=== PATIENT | male | born 1950 | race Caucasian/White ===

== ENCOUNTER 2019-04-05 07:21 | Outpatient (CLI) | payer OTHER, MEDICARE, SELFPAY ==
--- NOTE | ~2019-04-05 | NM_ITS ---
EXAMINATION: NM bone scan whole body DATE: 04/05/2019 11:25 INDICATION: Prostate cancer TECHNIQUE: 23.4 mCi Tc-99m HDP was administered intravenously. Delayed whole-body scintigrams were o btained. COMPARISON: CT abdomen and pelvis dated 04/05/2019 FINDINGS: Small focus of mild increased uptake at the lateral side of the left posterior 10th rib with subtle s mall sclerotic lesion at this location on the CT of the abdomen and pelvis. More typical pattern of l ikely degenerative joint centered uptake at the medial compartment of the left knee, the bilateral mi d feet, right greater than radial aspect of the bilateral carpi and at the right third metacarpophala ngeal joint. There is focal expansion of the mid diaphysis of the right femur with only minimally inc reased uptake suggesting an old healed fracture. Mild lumbar dextroscoliosis. IMPRESSION: 1. Single small focus of mild increased uptake at the left posterior 10th rib for which differential would include metastatic disease although no other suspicious bone lesions are identified to more spe cifically elevated suspicion and the linear pattern of sclerosis is also somewhat atypical. Different ial would include old fracture, bone infarct or benign neoplasms images fibrous dysplasia or enchondr sven. Reviewed, dictated and finalized at location A. S AND CATERING COORDINATOR IMPRESSION: 1. Single small focus of mild increased uptake at the left posterior 10th rib f or which differential would include metastatic disease although no other suspic ious bone lesions are identified to more specifically elevated suspicion and th e linear pattern of sclerosis is also somewhat atypical. Differential would inc lude old fracture, bone infarct or benign neoplasms images fibrous dysplasia or enchondroma.
--- NOTE | ~2019-04-05 | XR_ITS ---
EXAMINATION: XR chest 2V DATE: 04/05/2019 07:54 INDICATION: Prostate cancer. TECHNIQUE: Frontal and lateral views of the chest were obtained. COMPARISON: CT abdomen and pelvis 04/05/2019 FINDINGS: There is mild atelectasis in the lower lung zones. No pleural effusion or pneumothorax. The heart size is normal. IMPRESSION: 1. Mild atelectasis in the lower lung zones. Reviewed, dictated and finalized at location A. TRONIC TEST TECHNICIAN
--- NOTE | ~2019-04-05 | CT_ITS ---
EXAMINATION: CT abdomen pelvis w con DATE: 04/05/2019 08:19 INDICATION: Prostate cancer. TECHNIQUE: Computed tomography (CT) of the abdomen and pelvis was performed with 100 mL Omnipaque 350 intravenous contrast. Automated exposure control and iterative reconstruction technique were employe d. The dose-length product was 514.61 mGy-cm. COMPARISON: None. FINDINGS: The visualized portions of the lung bases demonstrate mild atelectasis. No pleural effusion . The heart size is normal. No pericardial effusion. There is mild bilateral gynecomastia. The liver, gallbladder, spleen, pancreas, and right adrenal gland are normal. There is a 10 mm mass in left adr enal gland measuring soft tissue attenuation. There is cortical thinning of the kidneys. There is a 5 mm cyst in left kidney. The prostate is moderately enlarged. There is diverticulosis of the colon wi thout evidence of diverticulitis. There are no dilated loops of bowel. The appendix is normal. There is a small left inguinal hernia containing fat. There are no pathologically enlarged lymph nodes. The re is no free intraperitoneal fluid. There is moderate lumbar spondylosis. Lumbar dextroscoliosis is noted. IMPRESSION: 1. No specific evidence of metastatic disease. 2. 10 mm left adrenal mass. 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 Reviewed, dictated and finalized at location A. RT LOAD EXPEDITER
[2019-04-05 08:11] LABS: Blood Urea Nitrogen 21 mg/dL (8-26); Estimated Glomerular Filt Rate 60
== END 2019-04-05 07:22 | disposition home or self-care (01) ==
LOC: ANHIMG 07:28
PROVIDERS: PCP Internal Medicine; Visit Provider Urology
DX: C61 Malignant neoplasm of prostate (principal); R93.7 Abnormal findings on diagnostic imaging of other parts of musculoskeletal system; E27.9 Disorder of adrenal gland, unspecified; J98.11 Atelectasis
CPT/HCPCS: 71046; 74177; 78306; A9561; Q9967

== ENCOUNTER 2019-05-02 09:39 | Outpatient (CLI) | payer OTHER, MEDICARE, SELFPAY ==
--- NOTE | 2019-05-02 10:21 | ECG_ITS ---
Measurements Intervals [place] Rate: 57 P: 33 WI: 155 QRS: -9 QRSD: 101 T: 31 QT: 401 QTc: 393 Interpretive Statements SINUS BRADYCARDIA BASELINE ARTIFACT- I, II, III, AVR, AVL, AVF BORDERLINE ECG Electronically Signed On 05-02-2019 10:41:46 CDT by Addi Cannon D.O.
[2019-05-02 11:24] LABS: INR 0.9
[2019-05-02 11:27] LABS: Alanine Aminotransferase 30 U/L (4-50); Albumin Level 4.7 g/dL (3.5-5.1); Alkaline Phosphatase 49 U/L (38-126); Aspartate Amino Transferase 32 U/L (17-59); Bilirubin,Total 0.3 mg/dL (0.2-1.3); Blood Urea Nitrogen 16 mg/dL (9-20); Calcium 9.4 mg/dL (8.4-10.2); Carbon Dioxide 24 mmol/L (22-30); Chloride 106 mmol/L (98-107); Estimated Glomerular Filt Rate 60; Glucose 89 mg/dL (75-110); Potassium 4.2 mmol/L (3.4-5.0); Sodium 138 mmol/L (137-145)
[2019-05-02 11:32] LABS: Basophils Percent Auto 0.5 % (0.2-1.2); Eosinophils Absolute Auto 0.1 K/mm3 (0-0.3); Eosinophils Percent Auto 1.3 % (0-4.4); Hematocrit 44.2 % (42.0-52.0); Hemoglobin 14.5 g/dL (14.0-18.0); Immature Granulocyte Absolute 0.01 K/mm3 (0.00-0.031); Immature Granulocyte Percent A 0.2 % (0-0.5); Lymphocytes Absolute Auto 1.57 K/mm3 (0.9-3.2); Lymphocytes Percent Auto 26.3 % (18.3-44.2); Mean Corpuscular HGB Conc 32.8 g/dl (32-36); Mean Corpuscular Hemoglobin 32.2 pg (26-34); Mean Platelet Volume 10.4 fl (7.4-10.4); Monocytes Absolute Auto 0.4 K/mm3 (0.1-0.6); Monocytes Percent Auto 5.9 % (2.6-8.5); Neutrophils Absolute Auto 3.9 K/mm3 (1.3-6.7); Neutrophils Percent Auto 65.8 % (45.5-73.1); Platelet Count Result 255 k/mm3 (150-375); Red Blood Count 4.51 M/mm3 (4.6-6.20); Red Cell Distribution Width 13.2 % (11.5-14.5)
[2019-05-02 11:38] LABS: Add Urine Microscopic? NO; Appearance Urine Clear (Clear); Bilirubin Urine Negative (Negative); Blood Urine Negative (Negative); Color Urine Colorless (Yellow); Glucose Urine UA Negative (Negative); Ketones Urine Negative (Negative); Leukocyte Esterase Ur Negative LEU/UL (Negative); Nitrate Urine Negative (Negative); Protein Urine Negative (Negative); Specific Grav Ur 1.006 (1.001-1.035); Urobilinogen Urine Negative mg/dL (<2.0)
== END 2019-05-02 09:40 | disposition home or self-care (01) ==
PROVIDERS: PCP Internal Medicine; Visit Provider Urology
DX: Z01.818 Encounter for other preprocedural examination (principal); C61 Malignant neoplasm of prostate
CPT/HCPCS: 36415; 80053; 81003; 85025; 85610; 85730; 86850; 86900; 86901; 93005

== ENCOUNTER 2019-05-12 01:48 | Day surgery (SDC) | payer OTHER, MEDICARE, SELFPAY ==
[2019-05-02 10:00] VITALS: BP 170/92; PULSE 64; RESP 20; TEMP 37; O2SAT 98; BMI 27.4
--- NOTE | 2019-05-06 11:16 | PM.IMHP ---
H&P: HPI History of Present Illness Chief complaint: Prostate Cancer Narrative: Delio Nichols is a 68 year old male who is well known to our practice with a long history of an elevated PSA. He 1st underwent a prostate biopsy in February 2012 when his PSA was 4.6. For several years his PSA remained stable until recently shot up to 13.3. Elier Myers transrectal ultrasound and biopsy of the prostate revealed a 57.7 cc gland with 5 of 12 cores showing Hattie adenocarcinoma 4+ 4 equals 8.Alternative treatment options (including active surveillance, radiation therapy in its various forms and androgen ablation) have been discussed. We've also discussed complications of this procedure including, but not limited to, failure to control his cancer, adverser cardiopulmonary events, rectal injury, need to convert to an open procedure, urinary incontinence and erectile dysfunction. Review of Systems Constitutional: Constitutional: Denies chills, Denies fatigue, Denies fever(s) and Denies headache(s) Eyes: Eyes: Denies blurry vision ENT: Denies vertigo, Denies dizziness, Denies headache(s) and Denies sore throat Cardiovascular: Cardiovascular: Denies chest pain, Denies syncope, Denies lightheadedness, Denies palpitations, Denies dyspnea and Denies dyspnea on exertion Respiratory: Respiratory: Denies hemoptysis, Denies dyspnea and Denies dyspnea on exertion Gastrointestinal: Gastrointestinal: Denies melena, Denies bloating, Denies hematochezia, Denies change in bowel habits, Denies change in stool character, Denies constipation, Denies diarrhea and Denies vomiting Genitourinary: Genitourinary: Denies hematuria, Denies dysuria, Denies testicular pain, Denies urinary frequency, Denies urinary hesitancy and Denies urinary urgency Integumentary/Breasts: Skin/Breast: Denies pruritus, Denies lesions and Denies rash Neurologic: Denies confusion, Denies vertigo, Denies dizziness, Denies syncope and Denies headache(s) Psychiatric: Psychiatric: Denies anxiety, Denies change in appetite and Denies confusion Endocrine: Endocrine: Denies fatigue and Denies palpitations PMF Family History Family History Father Carcinoma of colon Social History Social History Smoking status: Former smoker Second hand tobacco smoke exposure: No Smoking end date: 02/23/94 Alcohol intake: never Meds Home Medications and Allergies Home Medications Medication Instructions Recorded Confirmed Type atorvastatin 20 mg PO DAILY 05/02/19 05/02/19 History finasteride 5 mg PO DAILY 05/02/19 05/02/19 History metoprolol tartrate 50 mg PO DAILY 05/02/19 05/02/19 History multivitamin 1 tablet PO DAILY 05/02/19 05/02/19 History Allergies Allergy/AdvReac Type Severity Reaction Status Date / Time Penicillins Allergy Unknown Rash Verified 05/02/19 09:53 Exam Const: General: healthy appearing, comfortable, no acute distress and well developed; No confusion Nutritional Appearance: well nourished Orientation/consciousness: patient oriented x3 and No confusion HENMT: Head: normocephalic and atraumatic Ears: external ears normal Face and sinus: normal facial exam Mouth: Yes lip normal Teeth and gingiva: dentition normal Eyes: General: appearance normal, both eyes and all related structures Alignment and Position: alignment normal Eyelids: eyelids normal Cornea: corneas normal Pupils: Equal, round and reactive pupils present EOM: EOMs intact bilaterally Neck: Neck: normal visual inspection, full ROM and no JVD Chest: Chest palpation & inspection: normal inspection of the chest Resp: Effort & Inspection: normal respiratory effort and no use of accessory muscles Auscultation: clear to auscultation bilaterally Cardio: Jugular venous distension: no JVD Rate: regular rate Rhythm: regular rhythm GI: Inspection: normal to inspection GI Palp:
[2019-05-12] VITALS (12 sets, daily range): BP systolic 105–156; BP diastolic 51–96; PULSE 52–91; RESP 16–18; TEMP 36.1–37.2; O2SAT 94–100
[2019-05-12] MEDS: LACTATED RINGERS 1,000 ML 30 ML IV CONT ×2 (06:35→10:52)
--- NOTE | 2019-05-12 06:35 | WPDANESEPPF ---
Anes - Initial Pre Proc Eval Procedure: Operation Date: 05/12/19 07:30 Proposed Procedures p Robotic Prostatectomy, Bilateral Pelvic Lymph Node Dissection - Bill Underwood MD Date/Time: 05/12/19 06:35 Surgeon: Bill Underwood MD Pre Op Diagnosis: Prostate Cancer Patient Data Age: 68 Gender: M Height: 5 ft 9.5 in Weight: 81.6 kg Last Vital Signs Temp 36.6 C 05/12/19 06:01 Pulse 86 05/12/19 06:01 Resp 18 05/12/19 06:01 BP 148/91 H 05/12/19 06:01 Pulse Ox 98 05/12/19 06:01 Allergies Allergy/AdvReac Type Severity Reaction Status Date / Time Penicillins Allergy Unknown Rash Verified 05/12/19 06:17 Home Medications Medication Instructions Recorded Confirmed Type atorvastatin 20 mg PO DAILY 05/02/19 05/12/19 History finasteride 5 mg PO DAILY 05/02/19 05/12/19 History metoprolol tartrate 50 mg PO DAILY 05/02/19 05/12/19 History multivitamin 1 tablet PO DAILY 05/02/19 05/12/19 History Patient hx anesthesia problems: none Family hx anesthesia problems: none PMF Family History Family History Father Carcinoma of colon Social History Social History Smoking status: Former smoker Second hand tobacco smoke exposure: No Smoking end date: 02/23/94 Alcohol intake: never Anes - Eval Final PreProcedure Day of Procedure 05/12/19 06:35 Patient weight: overweight Heart: regular rate and rhythm Lungs: clear to auscultation Airway: Mallampati scale class II Neurological: alert and oriented Last oral intake: >/= 8 hours ASA classification: III Emergent: no Anesthetic plan: proceed Anesthesia type and monitoring: general ETT and standard monitoring Informed Consent: The patient's anesthetic plan and its attendant risks and benefits were discussed with the patient/family/POA. Questions were solicited and answers provided to the satisfaction of the patient/family/POA.
--- NOTE | 2019-05-12 06:48 | WPDHPUPDATE1 ---
History and Physical Update Update Date/Time: 05/12/19 06:48 History and Physical has been reviewed, including an updated exam of the patient. There are NO changes in the patient's condition. Risks, benefits, and alternatives have been discussed and questions answered. Patient agrees to proceed with procedure.
[2019-05-12] MEDS: ceFAZolin 2 GM/D5W 50 ML 2 GM/50 ML BAG IVPB (07:17)
--- NOTE | 2019-05-12 10:11 | SUR.OPER ---
1011-removed 20f silicone catheter removed & replaced with 18fr/10cc balloon lynn catheter By Kristy Macedo, surgical supplies sterilizer. 1012-Lymph nodes (2 specimens) sent to pathology fresh with Giselle Jackson. Specimens given to
--- NOTE | 2019-05-12 10:34 | SUR.OPER ---
Ebl=50ml
--- NOTE | 2019-05-12 11:27 | PM.PROC ---
Procedure Note - Detailed Date of procedure: 05/12/19 Pre-op diagnosis: Prostate Cancer Post-op diagnosis: same Procedure performed: 1. Robotic-assisted, bilateral nerve-sparing radical prostatecomy. 2. Bilateral pelvic lymphadenectomy. Description of procedure: The patient was brought to the operative suite, where he was prepped and draped in routine sterile fashion while in a dorsal lithotomy, deep Trendelenburg position. A supraumbilical 10 mm trocar was placed after insufflation of the abdomen with a Veress needle. Three robotic ports were then placed under direct vision. Two of these were placed in the right lower quadrant - 10 cm and 20 cm lateral to, and in line with, the umbilicus. A third robotic trocar was placed 10 cm to the left of the umbilicus, and 20 cm to the left of the umbilicus, a 12 mm standard laparoscopic trocar was placed to be used as an cosmetic sales assistant port. Lastly, a 5 mm trocar was placed in the left upper quadrant midway between the umbilicus and the left robotic trocar. Attention was then turned to the prostatectomy. I opted for a posterior approach in this patient. An incision was made in the parietal peritoneum along the posterior bladder/posterior prostate about 2 cm above the reflection of the peritoneum over the anterior rectum. The seminal vesicles and vas deferens were immediately identified. Dissection is undertaken in a fashion so as to avoid electrocautery as much as possible, particularly near the tips of the seminal vesicles. Dissection was also carried out in the midline so as to avoid any encounters with the ureters. The vas deferens and the seminal vesicles were dissected in their entirety to the base of the prostate. The plane anterior to Denoviller's fascia, anterior to the rectum and posterior to the prostate was then developed. I then dropped the bladder by incising the anterior parietal peritoneum just lateral to the median umbilical ligaments bilaterally. The bladder was dropped from the anterior abdominal and pelvic wall. The endopelvic fascia was identified and incised bilaterally, allowing for dissection of the posterior-lateral aspect of the prostate. The puboprostatic ligaments were transected near their origin from the posterior pubic ramus. This posterior lateral dissection of the prostate is also undertaken in a fashion so as to avoid electrocautery as much as possible. The dorsal vein of the penis is then secured with an 0 -Vicryl ligature. Attention is then turned to the bladder neck. The anterior bladder neck is incised at the vesico-prostatic junction. The previously placed urethral catheter was drawn through the urethrotomy. A very small bladder neck was maintained throughout the remainder of this dissection. The posterior bladder neck was incised in a fashion so as to avoid any injury to the ureteral orifices. Again, the small aperture of the bladder neck was maintained. The previously dissected vas deferens and the seminal vesicles were brought through the posterior bladder neck incision. The lateral prostatic pedicles were then carefully dissected from the lateral aspect of the prostate bilaterally. The prostatic pedicles were secured with Weck clips and transected. The neurovascular bundles were carefully dissected from the posterior-lateral aspect of the prostate. The dorsal vein of the penis was incised with electrocautery. Using cold scissors, the urethra was incised. After withdrawing the previously placed urethral catheter, the posterior urethra was sharply incised, as was the rectalurethralis muscle. Attention was then turned to a bilateral pelvic lymphadenectomy. The limits of this dissection were similar bilaterally. Specifically, the limits were the bifurcation of the common iliac vein proximally, the inguinal ligament distally, the obturator nerve posteriorly and the anterior aspect to the external iliac vein laterally. This dissection was undertaken with care to avoid any injury
--- NOTE | 2019-05-12 11:51 | SUR.PHASEI ---
1150 sbar faxed floor notified. family updated and sent to room
--- NOTE | 2019-05-12 13:39 | PC.NURSE ---
Patient arrived on our unit @1210, patient oriented to our unit, call light within reach, confirmed that pain level was controlled and that the patient was not having any pain.
[2019-05-12] MEDS: LACTATED RINGERS 1,000 ML 125 ML IV CONT ×2 (14:03→23:17)
[2019-05-12] MEDS: ATORVASTATIN 20 MG TABLET PO (15:46)
--- NOTE | 2019-05-12 19:18 | PC.NURSE ---
Dr. Underwood notified @1700 about the patient requesting to be a DNR, Dr. Underwood stated that the patient can remain a full code to avoid any adverse surgical events that could not be treated due to a DNR status. Patient will remain a full code per Dr. Underwood.
[2019-05-13 02:00] VITALS: BP 99/53; PULSE 59; RESP 16; TEMP 36.7; O2SAT 97
[2019-05-13 03:50] VITALS: BP 119/60
[2019-05-13 06:00] VITALS: BP 125/62; PULSE 62; RESP 16; TEMP 36.9; O2SAT 97
[2019-05-13 06:00] LABS: Hematocrit 32.5 % (42.0-52.0)
[2019-05-13 06:12] LABS: Blood Urea Nitrogen 13 mg/dL (9-20); Calcium 7.9 mg/dL (8.4-10.2); Carbon Dioxide 26 mmol/L (22-30); Chloride 104 mmol/L (98-107); Estimated CRCL calculation 71 ml/min; Estimated Glomerular Filt Rate > 60; Glucose 97 mg/dL (75-110); Sodium 133 mmol/L (137-145)
--- NOTE | 2019-05-13 07:22 | WPDUROPN2 ---
Progress Note: A&P Assessment and Plan (1) Prostate cancer: Code(s): C61 - Malignant neoplasm of prostate Status: Acute Assessment and Plan: Doing well POD #1 Anticipate discharge later today if ambulates/ tolerates regular diet. Subjective Subjective Date/Time Seen: 05/13/19 07:22 POD #1 RALP - comfortable / no complaints Review of Systems Cardiovascular: Cardiovascular: Denies chest pain, Denies lightheadedness, Denies palpitations and Denies dyspnea Respiratory: Respiratory: Denies dyspnea Gastrointestinal: Gastrointestinal: Denies diarrhea, Denies nausea and Denies vomiting Genitourinary: Genitourinary: Denies hematuria and Denies dysuria Endocrine: Endocrine: Denies palpitations Exam Const: General: no acute distress Resp: Effort & Inspection: normal respiratory effort GI: Inspection: normal to inspection (incisions clean and dry) and non-distended GI Palp: No abdominal tenderness and No Guarding due to palpation present (GI) Auscultation: normal bowel sounds Objective Data Vital Signs Vital Signs: Vital Signs - 24 hr 05/12/19 10:55 05/12/19 11:10 05/12/19 11:25 Temperature 97 F L Pulse Rate 61 58 L 65 Respiratory Rate 16 16 16 Blood Pressure 145/96 H 152/76 H 156/64 H Pulse Oximetry 100 100 94 05/12/19 11:40 05/12/19 12:00 05/12/19 12:10 Temperature 97.3 F L Pulse Rate 52 L 61 62 Respiratory Rate 16 18 16 Blood Pressure 136/67 139/70 124/66 Pulse Oximetry 95 95 98 05/12/19 12:25 05/12/19 12:55 05/12/19 13:55 Temperature 97.3 F L 97.8 F 98.7 F Pulse Rate 63 77 91 Respiratory Rate 16 18 16 Blood Pressure 133/71 136/81 134/71 Pulse Oximetry 99 96 96 05/12/19 14:00 05/12/19 22:00 05/13/19 02:00 Temperature 98.7 F 99.0 F 98.0 F Pulse Rate 91 75 59 L Respiratory Rate 16 16 16 Blood Pressure 134/71 105/51 L 99/53 L Pulse Oximetry 96 97 97 05/13/19 03:50 05/13/19 06:00 Temperature 98.5 F Pulse Rate 62 Respiratory Rate 16 Blood Pressure 119/60 125/62 Pulse Oximetry 97 Intake/Output Intake/Output: Intake & Output 05/10/19 05/11/19 05/12/19 05/13/19 23:59 23:59 23:59 23:59 Intake Total 2590 1482 Output Total 475 1350 Balance 2115 132 Meds/Results Medications: Active Medications Generic Name Dose Route Start Last Admin Trade Name Freq PRN Reason Stop Dose Admin Atorvastatin Calcium 20 mg 05/12/19 09:00 05/12/19 15:46 Lipitor PO 20 mg DAILY MEHREEN Administration Hyoscyamine 0.125 mg 05/12/19 12:02 Levsin Tablet SUBLINGUAL Q4H PRN Bladder Spasm Acetaminophen 1,000 mg in 100 mls @ 400 mls/hr 05/12/19 12:00 05/13/19 05:38 Ofirmev 1,000 Mg Ivpb IVPB 05/13/19 12:01 Infused Q6H MEHREEN Infusion Lactated Ringer's 1,000 mls @ 125 mls/hr 05/12/19 12:02 05/13/19 05:24 Lr - Lactated Ringers Iv IV CONT 125 mls/hr .Q8H MEHREEN Infusion Ketorolac Tromethamine 15 mg 05/12/19 12:02 Toradol Inj IV PUSH 05/13/19 12:03 Q6H PRN Pain Rated 4-6 Levofloxacin 500 mg 05/13/19 09:00 Levaquin Tab PO DAILY [facility] Metoprolol Tartrate 50 mg 05/13/19 09:00 Lopressor PO DAILY [facility] Naloxone HCl 0.1 mg 05/12/19 12:02 Narcan IV PUSH Q2M PRN Opiate Reversal Labs Labs: Laboratory Results - last 24 hr 05/13/19 05/13/19 05:42 05:42 Hgb 11.0 L D Hct 32.5 L Sodium 133 L Potassium 4.0 Chloride 104 Carbon Dioxide 26 BUN 13 Creatinine 0.90 Estim Creat Clear Calc 71 Estimated GFR > 60 Glucose 97 Calcium 7.9 L
[2019-05-13] MEDS: LACTATED RINGERS 1,000 ML 125 ML IV CONT (07:53)
[2019-05-13] MEDS: METOPROLOL TARTRATE 50 MG TAB PO (07:54)
[2019-05-13] MEDS: ATORVASTATIN 20 MG TABLET PO (07:54)
--- NOTE | 2019-05-13 11:57 | PM.DS ---
DS: Diagnosis Admitting Diagnosis Admitting Diagnosis: Malignant neoplasm of prostate DS: Summary Time Spent with Patient Time attestation: Total time spent providing and/or coordinating discharge services: 15min. Discharge Diagnosis: Prostate cancer This patient was admitted on the morning of his planned robotic prostatectomy. This procedure was uneventful, as was his postoperative course. By the evening of the procedure he was sitting at the bedside in tolerating a liquid diet. The following morning he was ambulating freely and tolerating regular food. His catheter drainage remained essentially clear throughout. His postoperative hemoglobin and serum creatinine were unremarkable. At the time of discharge he has been instructed in appropriate care for his Horta catheter with both a leg bag and bedside bag. He will be discharged with plans to follow-up in 1 week with a cystogram. Exam Const: General: no acute distress Resp: Effort & Inspection: normal respiratory effort GI: Inspection: non-distended GI Palp: No abdominal tenderness and No Guarding due to palpation present (GI) Auscultation: normal bowel sounds DS: Data Data Completed and Pending Pending studies at discharge: Pending at discharge 05/12/19 09:47 Surgical [PTH] Routine Surgical [PTH] Routine Labs on day of discharge: Labs from last 24 hours 05/13/19 05/13/19 05:42 05:42 Hgb 11.0 L D Hct 32.5 L Sodium 133 L Potassium 4.0 Chloride 104 Carbon Dioxide 26 BUN 13 Creatinine 0.90 Estim Creat Clear Calc 71 Estimated GFR > 60 Glucose 97 Calcium 7.9 L Discharge Plan Discharge Patient Disposition: Home, Self-Care Discharge Instructions: 1) Horta catheter -> leg bag / bedside bag at night. 2) No lifting/straining >15lbs. x3 weeks. 3) No driving x1-week. 4) Resume normal, pre-operative diet. 5) My office will contact regarding follow-up in 1-week with cystogram. Patient Instructions: Pain Management (DC), Horta Catheter Placement and Care (DC), Robot Assisted Laparoscopic Prostatectomy (DC) Discharge Medications: New hydrocodone-acetaminophen 5-325 mg tablet 1 - 2 tablet PO Q6H PRN (Reason: pain) Qty: 30 RF: 0 cephalexin 500 mg capsule 500 mg PO Q8H Qty: 15 RF: 0 hyoscyamine sulfate 0.125 mg tablet 0.125 mg PO Q6H PRN (Reason: bladder spasms) Qty: 20 RF: 2 docusate sodium [Colace] 100 mg capsule 100 mg PO DAILY Qty: 30 RF: 0 Continued multivitamin Tablet 1 tablet PO DAILY RF: 0 atorvastatin 20 mg Tablet 20 mg PO DAILY RF: 0 metoprolol tartrate 50 mg Tablet 50 mg PO DAILY RF: 0 Held aspirin 325 mg Tablet 325 mg PO DAILY RF: 0 Hold Instructions: Resume on 05/17/19. Discontinued finasteride 5 mg Tablet 5 mg PO DAILY RF: 0
== END 2019-05-13 12:20 | disposition home or self-care (01) ==
LOC: ANHSURGERY 05:54 → ANH3MEDSUR 12:04
PROVIDERS: PCP Internal Medicine; Visit Provider Urology
PROC: 0VT04ZZ Resection of Prostate, Percutaneous Endoscopic Approach (ICD-10-PCS; CPT 55867; principal; 2019-05-12 07:30)
DX: C61 Malignant neoplasm of prostate (principal); Z87.891 Personal history of nicotine dependence
CPT/HCPCS: 55866; 38571; S2900; 36415; 80048; 85014; 85018; 88305; 88307; 88309; A9270; J0131; J0690; J2250; J2270; J2704; J7030; J7120; Q9968

== ENCOUNTER 2019-05-20 13:35 | Outpatient (CLI) | payer OTHER, MEDICARE, SELFPAY ==
--- NOTE | ~2019-05-20 | XR_ITS ---
XR cystogram DATE: 05/20/2019 14:25 INDICATION: Status post recent prostatectomy for breast cancer TECHNIQUE: Formula Clerk and subsequent images of the pelvic area during and after filling of the urinary brendan dder lumen with radiopaque contrast material via the existing Horta catheter. COMPARISON: None FINDINGS: There is a Horta catheter within the bladder lumen. There is trabeculation of the urinary b ladder but no apparent intraluminal mass lesion of the urinary bladder. There is no vesicoureteral re flux. There is no extravasation of contrast material from the bladder lumen. IMPRESSION: Unremarkable postprostatectomy cystogram; no evidence of urinary bladder leak Reviewed, dictated and finalized at Location A. Reviewed, dictated and finalized at location A. IMPRESSION: Unremarkable postprostatectomy cystogram; no evidence of urinary bl adder leak
== END 2019-05-20 13:36 | disposition home or self-care (01) ==
PROVIDERS: PCP Internal Medicine; Visit Provider Urology
DX: C61 Malignant neoplasm of prostate (principal); Z90.79 Acquired absence of other genital organ(s)
CPT/HCPCS: 51600; 74430; Q9967

== ENCOUNTER 2019-10-11 08:27 | Outpatient (CLI) | payer OTHER, MEDICARE, SELFPAY ==
--- NOTE | ~2019-10-11 | MR_ITS ---
EXAMINATION: MR pelvis wo/w con INDICATION: Malignant neoplasm of the prostate TECHNIQUE: Coronal SSFSE ARC, Axial and Coronal 2D FIESTA FatSat, Axial T2 FS, Axial SSFSE BH ARC, Ax ial 3D DualEcho BH, Axial SSFSE-IR Neo, Axial DWI b=600, pre and dynamic postcontrast Axial LAVA ARC, WATER:POST Cor LAVA-FLEX COMPARISON: CT, 04/05/2019 CONTRAST: Multihance, 15 cc FINDINGS: There are changes of prostatectomy. No pathologically enlarged pelvic lymph nodes are ident ified. There are no dilated loops of bowel. The bladder appears normal. The visualized osseous struct ures are unremarkable. A new 2.5 x 1.7 cm nonenhancing fluid collection is present in the left pelvis adjacent to the bladder, most consistent with postoperative change such as a peritoneal inclusion cy st. There is moderate lumbar spondylosis. IMPRESSION: 1. Expected changes of prostatectomy without evidence of metastatic disease. Small nonenhancing fluid collection of the left pelvis likely reflects a peritoneal inclusion cyst. Reviewed, dictated and finalized at location A. IMPRESSION: 1. Expected changes of prostatectomy without evidence of metastatic disease. Sm all nonenhancing fluid collection of the left pelvis likely reflects a peritone al inclusion cyst.
[2019-10-11 09:20] LABS: Estimated Glomerular Filt Rate 60
== END 2019-10-11 08:28 | disposition home or self-care (01) ==
PROVIDERS: PCP Internal Medicine; Visit Provider Radiology Radiation Oncology
DX: C61 Malignant neoplasm of prostate (principal)
CPT/HCPCS: 36415; 72197; A9577

== ENCOUNTER 2022-06-11 01:04 | Day surgery (SDC) | payer MEDICARE, OTHER, SELFPAY ==
[2022-05-30 12:22] VITALS: BMI 26.6
--- NOTE | 2022-06-10 11:32 | PM.HPGS ---
History of Present Illness History of Present Illness Consent: Risks, benefits, and alternatives have been discussed and questions answered. Patient agrees to proceed with procedure. Chief complaint: family hx colon ca Narrative: Delio Ncihols is a 71 year old male who was referred for colon cancer screening. He does have a family history of colon cancer. His father had colon cancer. Review of Systems Review of Systems: All systems reviewed & are unremarkable except as noted in HPI and below PMFSH Surgical History Surgical History History of prostatectomy Family History Family History Father Carcinoma of colon Hypertension High cholesterol Mother Breast cancer High cholesterol Hypertension Social History Social History Smoking packs per day: 0.25 Smoking cigarettes per day: 5.0 Years smoked: 20 Smoking pack-years: 5.00 Smoking status: Former smoker Tobacco type: pipe and cigars Second hand tobacco smoke exposure: No Smoking end date: 02/23/94 Additional smoking assessment comments: 1-2 Cigars a day Alcohol intake: current Drinks per week: 5 Alcohol use details: on occasion Substance use: never Substance use type: does not use Living arrangements: alone Gender identity (if verbalized by the patient): Male Spiritual care concerns: No Agree to blood products: Yes Meds Home Medications and Allergies Home Medications Medication Instructions Recorded Confirmed Type multivitamin 1 tablet PO DAILY 05/02/19 06/11/22 History aspirin 325 mg tablet 325 mg PO DAILY 05/12/19 06/11/22 History cholecalciferol (vitamin D3) 25 25 mcg PO DAILY 09/19/20 06/11/22 History mcg (1,000 unit) tablet glucosamine HCl 1,500 mg tablet 1,500 mg PO DAILY 09/19/20 06/11/22 History atorvastatin 20 mg tablet 20 mg PO DAILY 90 days #90 tabs 05/08/22 06/11/22 Rx metoprolol succinate 50 mg 50 mg PO DAILY 90 days #90 tabs 05/08/22 06/11/22 Rx tablet,extended release 24 hr sildenafil 100 mg tablet 100 mg PO DAILY 05/30/22 06/11/22 History Allergies Allergy/AdvReac Type Severity Reaction Status Date / Time Penicillins Allergy Intermediate Rash Verified 06/11/22 08:26 Tetanus Vaccines and Toxoid Allergy Intermediate rash Verified 06/11/22 08:26 Exam Const: General: alert Orientation/consciousness: patient oriented x3 Resp: Auscultation: clear to auscultation bilaterally Cardio: Rhythm: regular rhythm GI: GI Palp: Yes Soft to palpation and No Tenderness to palpation present (GI) Neuro: General: patient oriented x3 Assessment and Plan Assessment and plan (1) Screening for colon cancer: Code(s): Z12.11 - Encounter for screening for malignant neoplasm of colon Status: Acute Assessment and Plan: Colonoscopy with possible biopsy or polypectomy or cautery or injection of substances.
[2022-06-11 08:28] VITALS: BP 143/84; PULSE 89; RESP 20; TEMP 36.5; O2SAT 100
[2022-06-11] MEDS: LACTATED RINGERS 1,000 ML 150 ML IV CONT (08:30)
--- NOTE | 2022-06-11 09:18 | WPDANESEPPF ---
Anes - Initial Pre Proc Eval Procedure: Operation Date: 06/11/22 09:45 Proposed Procedures p Colonoscopy - Gautam Nichols MD Date/Time: 06/11/22 09:18 Surgeon: Gautam Nichols MD Pre Op Diagnosis: family hx colon ca Patient Data Age: 71 Gender: M Height: 1.75 m Weight: 81.9 kg Last Vital Signs Temp 97.7 F 06/11/22 08:28 Pulse 89 06/11/22 08:28 Resp 20 06/11/22 08:28 BP 143/84 H 06/11/22 08:28 Pulse Ox 100 06/11/22 08:28 O2 Del Method Room Air 06/11/22 08:28 Allergies Allergy/AdvReac Type Severity Reaction Status Date / Time Penicillins Allergy Intermediate Rash Verified 06/11/22 08:26 Tetanus Vaccines and Toxoid Allergy Intermediate rash Verified 06/11/22 08:26 Home Medications Medication Instructions Recorded Confirmed Type multivitamin 1 tablet PO DAILY 05/02/19 06/11/22 History aspirin 325 mg tablet 325 mg PO DAILY 05/12/19 06/11/22 History cholecalciferol (vitamin D3) 25 25 mcg PO DAILY 09/19/20 06/11/22 History mcg (1,000 unit) tablet glucosamine HCl 1,500 mg tablet 1,500 mg PO DAILY 09/19/20 06/11/22 History atorvastatin 20 mg tablet 20 mg PO DAILY 90 days #90 tabs 05/08/22 06/11/22 Rx metoprolol succinate 50 mg 50 mg PO DAILY 90 days #90 tabs 05/08/22 06/11/22 Rx tablet,extended release 24 hr sildenafil 100 mg tablet 100 mg PO DAILY 05/30/22 06/11/22 History Patient hx anesthesia problems: none Family hx anesthesia problems: none Results Review: All pre-operative results and documents have been reviewed as part of the pre-operative evaluation. [facility] Surgical History Surgical History History of prostatectomy Family History Family History Father Carcinoma of colon Hypertension High cholesterol Mother Breast cancer High cholesterol Hypertension Social History Social History Smoking packs per day: 0.25 Smoking cigarettes per day: 5.0 Years smoked: 20 Smoking pack-years: 5.00 Smoking status: Former smoker Tobacco type: pipe and cigars Second hand tobacco smoke exposure: No Smoking end date: 02/23/94 Additional smoking assessment comments: 1-2 Cigars a day Alcohol intake: current Drinks per week: 5 Alcohol use details: on occasion Substance use: never Substance use type: does not use Living arrangements: alone Gender identity (if verbalized by the patient): Male Spiritual care concerns: No Agree to blood products: Yes Anes - Eval Final PreProcedure Day of Procedure 06/11/22 09:18 Patient weight: normal Heart: regular rate and rhythm Lungs: clear to auscultation Airway: Mallampati scale class II Neurological: alert and oriented Last oral intake: >/= 8 hours ASA classification: III Emergent: no Anesthetic plan: proceed Anesthesia type and monitoring: general GIVS and standard monitoring Results Review: All pre-operative results and documents have been reviewed as part of the pre-operative evaluation. Informed Consent: The patient's anesthetic plan and its attendant risks and benefits were discussed with the patient/family/POA. Questions were solicited and answers provided to the satisfaction of the patient/family/POA.
[2022-06-11] MEDS: SIMETHICONE ORAL SUSPENSION 20 MG/0.3 ML 30 ML BOTTLE 0.6 ML IRRIGATION (09:37)
[2022-06-11 09:44] VITALS: BP 98/65; PULSE 84; RESP 22; O2SAT 98
[2022-06-11 09:54] VITALS: BP 102/68; PULSE 78; RESP 20; O2SAT 97
[2022-06-11 10:04] VITALS: BP 131/90; PULSE 76; RESP 20; O2SAT 100
== END 2022-06-11 10:14 | disposition home or self-care (01) ==
PROVIDERS: PCP Internal Medicine; Visit Provider Internal Medicine Gastroenterology
PROC: 0DJD8ZZ Inspection of Lower Intestinal Tract, Via Natural or Artificial Opening Endoscopic (ICD-10-PCS; CPT 45378; principal; 2022-06-11 09:45)
DX: Z12.11 Encounter for screening for malignant neoplasm of colon (principal); K57.30 Diverticulosis of large intestine without perforation or abscess without bleeding; K63.5 Polyp of colon; Z80.0 Family history of malignant neoplasm of digestive organs; Z79.82 Long term (current) use of aspirin; Z87.891 Personal history of nicotine dependence
CPT/HCPCS: 45380; 88305; J2704; J7120

== ENCOUNTER 2023-07-31 09:22 | Outpatient (CLI) | payer MEDICARE, OTHER, SELFPAY ==
--- NOTE | ~2023-07-31 | US_ITS ---
EXAMINATION: US abdomen complete DATE: 07/31/2023 10:22 INDICATION: Leukopenia. TECHNIQUE: Multiple grayscale and Doppler ultrasound images of the abdomen were obtained. COMPARISON: CT abdomen and pelvis 04/05/2019 FINDINGS: The visualized portions of the head, body, and tail of the pancreas are normal. The liver i s normal without focal lesion. There is normal flow in main portal vein. The gallbladder is normal in size contains gallstones. No gallbladder wall thickening or sonographic Luis sign. The common duct is normal and measures 3 mm. The kidneys are normal in size. The spleen is normal in size. The infer ior vena cava is normal. Abdominal aorta is normal in caliber. IMPRESSION: 1. Cholelithiasis. No evidence of acute cholecystitis. Reviewed, dictated and finalized at location E.
[2023-07-31 11:08] LABS: Basophils Percent Auto 0.5 % (0.2-1.2); Eosinophils Absolute Auto 0.1 K/mm3 (0-0.3); Eosinophils Percent Auto 1.6 % (0-4.4); Hematocrit 41.3 % (42.0-52.0); Hemoglobin 13.1 g/dL (14.0-18.0); Immature Granulocyte Absolute 0.01 K/mm3 (0.00-0.031); Immature Granulocyte Percent A 0.3 % (0-0.5); Lymphocytes Absolute Auto 1.03 K/mm3 (0.9-3.2); Lymphocytes Percent Auto 27.5 % (18.3-44.2); Mean Corpuscular HGB Conc 31.7 g/dl (32-36); Mean Corpuscular Hemoglobin 33.3 pg (26-34); Mean Corpuscular Volume 105.1 fl (80-100); Mean Platelet Volume 10.5 fl (7.4-10.4); Monocytes Absolute Auto 0.2 K/mm3 (0.1-0.6); Monocytes Percent Auto 6.4 % (2.6-8.5); Neutrophils Absolute Auto 2.4 K/mm3 (1.3-6.7); Neutrophils Percent Auto 63.7 % (45.5-73.1); Platelet Count Result 180 k/mm3 (150-375); Red Blood Count 3.93 M/mm3 (4.6-6.20); Red Cell Distribution Width 13.7 % (11.5-14.5); White Blood Count 3.7 K/mm3 (4.5-10.0)
[2023-07-31 11:30] LABS: Platelet Estimate Adequate (Adequate)
[2023-07-31 11:31] LABS: Anisocytosis 1+; Microcytosis 2+ (NORMAL); Schistocytes None Seen
[2023-07-31 11:45] LABS: Iron 130 ug/dL (49-181)
[2023-07-31 11:54] LABS: Percent Iron Saturation 36 % (20-50)
[2023-07-31 13:37] LABS: Alanine Aminotransferase 19 U/L (6-50); Albumin Level 4.5 g/dL (3.5-5.1); Alkaline Phosphatase 40 U/L (38-126); Anion Gap 5 mmol/L (4-12); Aspartate Amino Transferase 35 U/L (17-59); Bilirubin,Total 0.7 mg/dL (0.2-1.3); Blood Urea Nitrogen 30 mg/dL (9-20); Calcium 9.2 mg/dL (8.4-10.2); Carbon Dioxide 26 mmol/L (22-30); Chloride 109 mmol/L (98-107); Estimated Glomerular Filt Rate 60; Glucose 86 mg/dL (65-110); Lactate Dehydrogenase 207 U/L (120-246); Potassium 4.8 mmol/L (3.4-5.0); Sodium 140 mmol/L (137-145)
[2023-07-31 13:44] LABS: Transferrin 272 mg/dL (206-381)
[2023-07-31 14:58] LABS: Folic Acid > 20.0 ng/mL (2.76->20)
[2023-08-03 11:38] LABS: ANA Cascade Screen NEGATIVE (NEGATIVE)
[2023-08-05 08:14] LABS: Methylmalonic Acid 101 nmol/L (87-318)
== END 2023-07-31 09:23 | disposition home or self-care (01) ==
PROVIDERS: PCP Nurse Practitioner Family; Visit Provider Internal Medicine Hematology & Oncology
DX: D72.819 Decreased white blood cell count, unspecified (principal); D64.9 Anemia, unspecified; K80.20 Calculus of gallbladder without cholecystitis without obstruction
CPT/HCPCS: 36415; 76700; 80053; 82607; 82728; 82746; 83540; 83550; 83615; 83921; 84466; 85025; 86038; 86225; 86235; 86364

== ENCOUNTER 2023-12-10 11:07 | Outpatient (CLI) | payer MEDICARE, OTHER, SELFPAY ==
[2023-12-10 11:21] LABS: Basophils Percent Auto 0.4 % (0.2-1.2); Eosinophils Absolute Auto 0.1 K/mm3 (0-0.3); Eosinophils Percent Auto 1.5 % (0-4.4); Hematocrit 38.3 % (42.0-52.0); Hemoglobin 12.4 g/dL (14.0-18.0); Immature Granulocyte Absolute 0.02 K/mm3 (0.00-0.031); Immature Granulocyte Percent A 0.4 % (0-0.5); Lymphocytes Absolute Auto 0.91 K/mm3 (0.9-3.2); Lymphocytes Percent Auto 16.8 % (18.3-44.2); Mean Corpuscular HGB Conc 32.4 g/dl (32-36); Mean Corpuscular Hemoglobin 33.3 pg (26-34); Mean Platelet Volume 9.6 fl (7.4-10.4); Monocytes Absolute Auto 0.3 K/mm3 (0.1-0.6); Monocytes Percent Auto 6.3 % (2.6-8.5); Neutrophils Absolute Auto 4.1 K/mm3 (1.3-6.7); Neutrophils Percent Auto 74.6 % (45.5-73.1); Platelet Count Result 157 k/mm3 (150-375); Red Blood Count 3.72 M/mm3 (4.6-6.20); Red Cell Distribution Width 13.4 % (11.5-14.5); White Blood Count 5.4 K/mm3 (4.5-10.0)
[2023-12-10 13:43] LABS: Folic Acid > 20.0 ng/mL (2.76->20)
== END 2023-12-10 11:08 | disposition home or self-care (01) ==
LOC: ANHLAB 11:09
PROVIDERS: PCP Nurse Practitioner Family; Visit Provider Internal Medicine Hematology & Oncology
DX: D64.9 Anemia, unspecified (principal)
CPT/HCPCS: 36415; 82607; 82746; 85025

== ENCOUNTER 2024-01-14 14:00 | Outpatient (RCR) | payer MEDICARE, OTHER, SELFPAY ==
--- NOTE | 2023-11-25 16:09 | PTOPEVAL1 ---
Assessment and note entered by Marlyn Child, PT Evaluation Information Assessment Status Evaluation Diagnosis pain in left knee ICD-10 Condition Codes (PT) Pain in left knee M25.562,Weakness R53.1 Onset ~1 year Subjective Information Pt reports is very active, works out 5 days a week , and is a walker. Used to run but absolutely cannot any longer. States on up and down steps and up a grade is what causes the most pain. 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 Did get a cortisone shot and is on prednisone recently. Has had them in the past years ago. Was scoped in 1994-, and had autologous injection of platelet substance and has not required injections since this point Reported Pain Level Pain Score 0: Self Report Assessment PT Clinical Summary Pt presents with complaints of left knee pain, history of arthritis, and scope with shots approx 30 years ago. States is trying to prevent necessity of surgical intervention. States pain is greatest with steps/stairs and incline walking, and has been unable to run for over two years. He is a highly active individual who works out 5 days a week and likes to walk. Evaluation shows severely low arches with hindfoot valgus bilat, significant genu varus naveen, LLE longer than RLE by about an inch. Pt demo's full functional ROM of bilat knees, tightness and discomfort end-range flexion with lateral patellar deviation. also demo 's decreased flexibility multiple muscle groups L> R, and mild weakness in the hips. Pt has been educated on therapy focusing on deficits to improve knee pain within reason as his diagnosis and alignment deficits are significant. Pt is agreeable to focus on deficits and improve knee pain and function. Plan of Care Interventions Electrical Stimulation,Hot Pack/Cold Pack,Manual Therapy,Neuro Re-education,Patient/Caregiver Educati,Therapeutic Activities,Therapeutic Exercise,Self-Care/Home Management,Ultrasound, Other Other Interventions Taping, bracing, IASTM PT Services Indicated Yes Treatment Frequency and 1-2x weekly x 8 visits Duration These treatments will address the objective and functional deficits as defined above. The patient will be advanced safely and appropriately in order for the patient to progress towards his/her prior level of function. Additional exercises will be introduced and as well as a comprehensive home exercise program upon discharge, if needed, ?to ensure carryover of functional gains achieved in the clinic. This treatment plan has been reviewed and agreement upon by the patient.
--- NOTE | 2023-11-25 16:09 | OPREHPOC ---
Outpatient Therapy Plan of Care This is a Multidisciplinary Plan of Care that may contain components documented by all disciplines (PT, OT, and ST.) PT Problem 1 PT Problem #1 Knowledge Deficit PT Goal 1 Goal / Goal Update Pt will be independent in HEP Pt will verbalize understanding of diagnosis and prognosis Target Visit 4 PT Problem 2 PT Problem #2 Pain PT Goal 1 Goal / Goal Update Pt will report highest level of pain at 5/10 with pain provoking activities Target Visit 4 PT Goal 2 Goal / Goal Update Pt will report highest level of pain at 3/10 with pain provoking activities Target Visit 8 PT Problem 3 PT Problem #3 Impaired Strength PT Goal 1 Goal / Goal Update Pt will demo quads strength LLE of 5/5 Target Visit 4 PT Goal 2 Goal / Goal Update Pt will demo gluteal strength of 5/5 to offload strain on knee Target Visit 8 PT Problem 4 PT Problem #4 Impaired Range of Motion PT Goal 1 Goal / Goal Update Pt will demo left hamstring length of 65 degrees from 90/90 or greater to decrease strain on left knee. Target Visit 4 PT Goal 2 Goal / Goal Update Pt will demo quads flexibility of 120 LLE for reduced strain on left knee. Target Visit 8
--- NOTE | 2024-01-16 16:42 | PTOPDC ---
Assessment and note entered by Shelly Mccauley, PT Discharge Information Assessment Status Discharge Diagnosis pain in left knee ICD-10 Condition Codes (PT) Pain in left knee M25.562,Weakness R53.1 Onset ~1 year Subjective Information Pt reports that he is starting to feel the pain again creeping in and as if the cortisone shot is wearing off. Otherwise he is maintaining an active lifestyle and is compliant with exercises. Assessment PT Clinical Summary Pt has received a total of 7 PT treatment sessions , currently demos good gains in strength and mobility, improved hamstrings muscle length. He has met most of established goals except for pain levels which was beginning to flare up recently and he attributed to the cortisone losing effectiveness. Altho strength has improved, he continue to demo decreased muscle power of bilat glute med only graded 4/5 at this time. Pt reports compliance with HEPs and wants to perform his program on his own since he is regularly going to the gym and walking everyday. States has an upcoming Ortho appointment and he expects to receive another cortisone shot or the possibility of discussing a different approach. Skilled PT intervention discontinued at this time. Plan of Care PT Services Indicated No
== END 2024-01-18 14:32 | disposition home or self-care (01) ==
LOC: ANHHIPT 14:00
PROVIDERS: PCP Nurse Practitioner Family; Visit Provider Orthopaedic Surgery
DX: M25.562 Pain in left knee (principal); R53.1 Weakness
CPT/HCPCS: 97014; 97035; 97110; 97112; 97116; 97140; 97161; 97530; G0283

== ENCOUNTER 2024-06-07 12:03 | Outpatient (CLI) | payer MEDICARE, OTHER, SELFPAY ==
[2024-06-07 12:19] LABS: Basophils Percent Auto 0.7 % (0.2-1.2); Hemoglobin 12.7 g/dL (14.0-18.0); Immature Granulocyte Absolute 0.02 K/mm3 (0.00-0.031); Immature Granulocyte Percent A 0.5 % (0-0.5); Lymphocytes Absolute Auto 1.22 K/mm3 (0.9-3.2); Lymphocytes Percent Auto 29.5 % (18.3-44.2); Mean Corpuscular HGB Conc 33.4 g/dl (32-36); Mean Corpuscular Hemoglobin 33.9 pg (26-34); Mean Corpuscular Volume 101.3 fl (80-100); Mean Platelet Volume 9.9 fl (7.4-10.4); Monocytes Absolute Auto 0.3 K/mm3 (0.1-0.6); Neutrophils Absolute Auto 2.5 K/mm3 (1.3-6.7); Neutrophils Percent Auto 61.3 % (45.5-73.1); Platelet Count Result 175 k/mm3 (150-375); Red Blood Count 3.75 M/mm3 (4.6-6.20); Red Cell Distribution Width 12.9 % (11.5-14.5); White Blood Count 4.1 K/mm3 (4.5-10.0)
--- OUTSIDE RECORDS SUMMARY | 2024-06-07 13:10 | XMS_ITS | Clinical Summary ---
[facility] Address [address] [place] [address] Care Team Providers Care Button Bradder Name Role Phone Bruce House MD Primary Care Provider [phone] Allergies Active Allergy Reactions Criticality Noted Date Comments Penicillins Hives,Rash High 07/16/2023 Tetanus And Diphther. Tox (Pf) Hives,Rash High 07/15 Medications tadalafiL (CIALIS) 20 mg tablet Take 20 mg by mouth 1 time daily as needed for Erectile Dysfunction. Active atorvastatin (LIPITOR) 20 mg tablet Take 20 mg by mouth daily. Active meloxicam (MOBIC) 15 mg tablet Take 15 mg by mouth daily. Active metoprolol succinate (TOPROL XL) 50 mg Extended Release 24 hour tablet Take 50 mg by mouth daily. Active OMEGA-3 ACID ETHYL ESTERS ORAL Take by mouth. Active multivitamin (DAILY-REGINALD) tablet Take 1 Tablet by mouth daily. Active CALCIUM CITRATE-VITAMIN D3 ORAL Take by mouth. Active Active Problems No known active problems Encounters Date Type Department Care Team Description 05/31/2024 External Device Data [facility] ABSTRACTION Provider, Abstract 05/11/2024 External Device Data [facility] ABSTRACTION Provider, Abstract 05/02/2024 External Device Data [facility] ABSTRACTION Provider, Abstract 04/19/2024 External Device Data [facility] ABSTRACTION Provider, Abstract 03/15/2024 External Device Data [facility] ABSTRACTION Provider, Abstract from Last 3 Months Family History Medical History Relation Name Comments Heart Disease Child 1 micheline No Known Problems Child 2 anatoliy No Known Problems Child 3 drake Colon Cancer Father Breast Cancer Mother Heart Disease Mother Relation Name Status Comments Child 1 micheline Alive Child 2 anatoliy Alive Child 3 drake Alive Father Mother Alive Social History Tobacco Use Types Packs/Day Years Used Date Smoking Tobacco: Former Cigarettes 0.5 20 Q uit: 07/15/1994 Tobacco Cessation:Counseling Given: Not Answered Alcohol Use Standard Drinks/Week Comments Yes 0 (1 standard drink = 0.6 oz pur e alcohol) socially Sex and Gender Information Value Date Recorded Sex Assigned at Not on file Legal Sex Male 3:28 PM CDT Gender Identity Not on file Sexual Orientation Not on file Last Filed Vital Signs Vital Sign Reading Time Taken Comments Blood Pressure 139/81 12/11/2023 10:15 AM CDT Pulse 43 12/11/2023 10:15 AM CDT Temperature 36.3 C (97.3 F) 12/11/2023 10:15 AM CDT Respiratory Rate 15 12/11/2023 10:15 AM CDT Oxygen Saturation 94% 12/11/2023 10:15 AM CDT Inhaled Oxygen Concentration - - Weight 79.9 kg (176 lb 3.2 oz) 12/11/2023 10:15 AM CDT Height 170.2 cm (5' 7 ) 07/16/2023 10:35 AM CDT Body Mass Index 27.6 07/16/2023 10:35 AM CDT Plan of Treatment Upcoming Encounters Date Type Department Care Team (Late st Contact Info) Description 06/10/2024 10:00 AM CDT Office Visit [facility] [place] [address] [place] [address] [facility] [address] [place] [address] Bebeto Ocampo MD [address] [place] [address] Health Maintenance Due Date Last Done Comments DTAP/TDAP/TD VACCINES (1 - Tdap) 07/08/1970 Traditional Medicare (ACO) Annual Wellness Visit 07/08 COLORECTAL SCREENING 07/08/1996 Colorectal Cancer Screening 07/08/1996 FIT-DNA Q 3 years 07/08/1996 FIT/FOBT Q 1 year 07/08/1996 Flex Sig/CT Colonography Q 5 years 07/08/1996 PNEUMOCOCCAL VACCINE 50+ YEARS (1 of 1 - PCV) 07/09/19 02 ZOSTER VACCINE (1 of 2) 07/08/2001 INFLUENZA VACCINE (#1) 2023 RSV VACCINE (60+ or ) (1 - 1-dose 75+ series) 07/08/2026 Abdominal Aortic Aneurysm (AAA) Screening Completed 07/31/2023 Procedures Procedure Name Priority Date/Time Associated Diagnosis Comments US ABDOMEN COMPLETE Routine 07/31/2023 8:55 AM CDT from Last 3 Months or Most Recently Relevant to Health Maintenance Results * US ABDOMEN COMPLETE (07/31/2023 8:55 AM CDT) Anatomical Region Laterality Modality Abdomen Ultrasound us Bebeto Ocampo MD US ORDERABLES Final Result from Last 3 Months or Most Recently Relevant to Health Maintenance Insurance MEDICARE PART A AND B [facility] CHOICE [id number] [place] [address] Care Teams Button Bradder Relationship Specialty Start Date End Date Bruce House MD [address] [place] [address] PCP - General Family Practice 07/15/23
--- OUTSIDE RECORDS SUMMARY | 2024-06-07 13:10 | XMS_ITS | Clinical Summary ---
Author Organization [facility] Address [address] [place] [id number] Care Team Providers Care Cook'S Assistant Name Role Phone Bill Underwood MD Primary Care Provider [phone] Social History Tobacco Use Types Packs/Day Years Used Date Smoking Tobacco: Never Assessed Sex and Gender Information Value Date Recorded Sex Assigned at Not on file Legal Sex Male 6:04 PM CDT Gender Identity Not on file Sexual Orientation Not on file Plan of Treatment Health Maintenance Due Date Last Done Comments Colorectal Cancer Screening Colonoscopy (10 Years) 1950 Hepatitis C 07/08/1969 DTaP, Tdap and Td Vaccines ( 1 - Tdap) 07/08/1970 Zoster Vaccines (1 of 2) 07/08/2001 Annual Medicare Wellness Visit 07/08/2016 Pneumococcal Vaccine: 50+ Ye ars (1 of 1 - PCV) 07/08/2016 COVID-19 Vaccine (2 - 2023-2 5 season) 2023 04/11/2020 RSV Immunization or 60+ Years (1 - 1-dose 75+ series) 07/08/2026 Meningococcal B Vaccine Aged Out No l onger eligible based on patient's age to complete this topic Meningococcal Vaccine Aged Out No liban kim eligible based on patient's age to complete this topic RSV Immunizations Under 20 Months Aged Out No longer eligible based on patient's age to complete this topic Insurance MEDICARE [employer] Care Teams Cook'S Assistant Relationship Specialty Start Date End Date Bill Underwood MD [address] [place], [place] [phone] PCP - General UROLOGY 04/18/20
[2024-06-07 13:36] LABS: Iron 136 ug/dL (49-181)
[2024-06-07 13:38] LABS: Alanine Aminotransferase 20 U/L (6-50); Albumin Level 4.3 g/dL (3.5-5.1); Alkaline Phosphatase 42 U/L (38-126); Anion Gap 7 mmol/L (4-12); Aspartate Amino Transferase 45 U/L (17-59); Bilirubin,Total 0.5 mg/dL (0.2-1.3); Blood Urea Nitrogen 24 mg/dL (9-20); Calcium 9.1 mg/dL (8.4-10.2); Carbon Dioxide 27 mmol/L (22-30); Chloride 103 mmol/L (98-107); Cholesterol 163 mg/dL (0-200); Estimated Glomerular Filt Rate 54; Glucose 88 mg/dL (65-110); HDL Direct 45 mg/dL; Potassium 4.5 mmol/L (3.4-5.0); Sodium 137 mmol/L (137-145); Triglycerides 148 mg/dL (<150)
[2024-06-07 13:46] LABS: Percent Iron Saturation 47 % (20-50)
[2024-06-07 13:48] LABS: LDL Cholesterol Direct 83 mg/dL
[2024-06-07 14:46] LABS: Folic Acid > 20.0 ng/mL (2.76->20)
== END 2024-06-07 12:04 | disposition home or self-care (01) ==
LOC: ANHLAB 12:06
PROVIDERS: Nurse Practitioner Family; PCP Family Medicine; Visit Provider Internal Medicine Hematology & Oncology
DX: D64.9 Anemia, unspecified (principal); I10 Essential (primary) hypertension; C61 Malignant neoplasm of prostate; M19.90 Unspecified osteoarthritis, unspecified site; G47.61 Periodic limb movement disorder
CPT/HCPCS: 36415; 80053; 80061; 82607; 82728; 82746; 83540; 83550; 85025

== ENCOUNTER 2025-02-03 08:35 | Outpatient (CLI) | payer MEDICARE, OTHER, SELFPAY ==
[2025-02-03 08:57] LABS: Hematocrit 35.2 % (42.0-52.0); Hemoglobin 11.4 g/dL (14.0-18.0); Immature Granulocyte Percent A 0.2 % (0-0.5); Lymphocytes Absolute Auto 0.81 K/mm3 (0.9-3.2); Mean Corpuscular HGB Conc 32.4 g/dl (32-36); Mean Corpuscular Hemoglobin 34.0 pg (26-34); Mean Corpuscular Volume 105.1 fl (80-100); Nucleated Red Blood Cells Absolute Auto 0.000 K/mm3 (0.0-0.012); Nucleated Red Blood Cells Perc 0.0 % (0.0-0.2); Platelet Count Result 164 k/mm3 (150-375); Red Blood Count 3.35 M/mm3 (4.6-6.20); White Blood Count 4.3 K/mm3 (4.5-10.0)
[2025-02-03 10:55] LABS: Alanine Aminotransferase 25 U/L (6-50); Albumin Level 4.0 g/dL (3.5-5.1); Alkaline Phosphatase 46 U/L (38-126); Anion Gap 2 mmol/L (4-12); Aspartate Amino Transferase 45 U/L (17-59); Bilirubin,Total 0.7 mg/dL (0.2-1.3); Blood Urea Nitrogen 30 mg/dL (9-20); Calcium 9.2 mg/dL (8.4-10.2); Carbon Dioxide 27 mmol/L (22-30); Chloride 112 mmol/L (98-107); Estimated Glomerular Filt Rate > 60; Glucose 113 mg/dL (65-110); Potassium 4.5 mmol/L (3.4-5.0); Sodium 141 mmol/L (137-145); Total Protein 6.7 g/dL (6.3-8.2)
[2025-02-03 12:59] LABS: Iron 109 ug/dL (49-181)
[2025-02-03 13:03] LABS: Percent Iron Saturation 37 % (20-50)
[2025-02-03 13:40] LABS: Ferritin 138.00 ng/mL (11.1-264)
[2025-02-03 14:08] LABS: Vitamin B12 560.0 pg/mL (239-931)
== END 2025-02-03 08:36 | disposition home or self-care (01) ==
LOC: ANHLAB 08:36
PROVIDERS: PCP Nurse Practitioner Family; Visit Provider Internal Medicine Hematology & Oncology
DX: D64.9 Anemia, unspecified (principal)
CPT/HCPCS: 36415; 80053; 82607; 82728; 82746; 83540; 83550; 85025